=== PATIENT | female | born 1980 | race Caucasian/White ===

== ENCOUNTER 2017-03-20 12:55 | Emergency (ER) | payer OTHER ==
[~2017-03-20] VITALS: Ht 170.2 cm; Wt 64.9 kg
[2017-03-20 13:14] VITALS: BP 146/91
[2017-03-20] MEDS ORDERED: SULF1TAB24 PO (13:44)
--- NOTE | 2017-03-20 13:44 | PHYS DOC ---
Past Medical History Past Medical History: No Pertinent History Past Surgical History: No Surgical History Alcohol Use: None Drug Use: None Adult General Chief Complaint Chief Complaint: INSECT BITE [facility] HPI Patient is a 36 year old female presents to the emergency department stating that she was bit by an insect approximately one week ago. She states that this occurred on her left forearm. She states that she has had increased pain with redness and drainage coming from the site. She's been pinprick on the area with minimal relief. She is scheduled patient denies any fever, chills or any nausea vomiting. Patient states her tetanus immunization is greater than 4-5 years. Review of Systems Review of Systems Constitutional: Denies fever or chills [] Eyes: Denies change in visual acuity, redness, or eye pain [] HENT: Denies nasal congestion or sore throat [] Respiratory: Denies cough or shortness of breath [] Cardiovascular: No additional information not addressed in HPI [] GI: Denies abdominal pain, nausea, vomiting, bloody stools or diarrhea [] : Denies dysuria or hematuria [] Musculoskeletal: Denies back pain or joint pain [] Integument: Denies rash or skin lesions. Patient with redness and tenderness to the left forearm. Neurologic: Denies headache, focal weakness or sensory changes [] Endocrine: Denies polyuria or polydipsia [] Current Medications Current Medications Current Medications Medications (Trade) Dose Ordered Sig/Carole Start Time Stop Time Status Last Admin Dose Admin Diphtheria/ Tetanus/Acell Pertussis (Boostrix) 0.5 ml ONCE ONCE 03/20/17 13:45 03/20/17 13:46 DC Allergies Allergies Allergies Coded Allergies Type Severity Reaction Last Updated Verified No Known Drug Allergies 06/13/14 No Physical Exam Physical Exam Constitutional: Well developed, well nourished, no acute distress, non-toxic appearance. [] HENT: Normocephalic, atraumatic, bilateral external ears normal, oropharynx moist, no oral exudates, nose normal. [] Eyes: PERRLA, EOMI, conjunctiva normal, no discharge. [] Neck: Normal range of motion, no tenderness, supple, no stridor. [] Cardiovascular:Heart rate regular rhythm, no murmur [] Lungs & Thorax: Bilateral breath sounds clear to auscultation [] Skin: Warm, dry, no erythema, no rash. Patient with redness warmth tenderness to the left forearm. Peripheral pulses are 2+ cap refill brisk less than 2 seconds no drainage or discharge noted from the site. Extremities: No tenderness, no cyanosis, no clubbing, ROM intact, no edema. [] Neurologic: Alert and oriented X 3, normal motor function, normal sensory function, no focal deficits noted. [] Psychologic: Affect normal, judgement normal, mood normal. [] Current Patient Data Vital Signs Vital Signs Date Time Temp Pulse Resp B/P (MAP) Pulse Ox O2 Delivery O2 Flow Rate FiO2 03/20/17 13:14 98.1 110 16 100 Room Air 98.1 EKG EKG [] Radiology/Procedures Radiology/Procedures [] Course & Med Decision Making Course & Med Decision Making Pertinent Labs and Imaging studies reviewed. (See chart for details) Patient refuses to have her tetanus immunization updated here in the emergency department. Patient will be placed on Bactrim 2 tablets twice a day for the next 10 days. Recommended Tylenol or ibuprofen for pain and discomfort elevation as much as possible with warm moist packs. Patient was recommended to follow-up with primary care physician in the next 3-5 days. Signs symptoms to return back to emergency department been provided. All questions and concerns been answered at patient's bedside. Patient agrees with discharge instructions treatment regimens and follow-up recommendations. Patient was provided with a prescription for Percogesic in which patient states that she will not take the medication as it has Benadryl in it. Patient has chosen to leave with no further pain medication. [] Dragon Disclaimer Dragon Disclaimer This electronic medical record was generated, in whole or in part, using a voice recognition dictation system. Departure Departure Impression: Primary Impression: Cellulitis of left forearm Disposition: HOME, SELF-CARE Condition: STABLE Referrals: JERRY STOCKTON MD (PCP) Patient Instructions: Cellulitis, [id number] Additional Instructions: Activity as tolerated. Medications prescribed. Tylenol or ibuprofen for pain and discomfort. Warm packs to the area 4-5 times a day. Follow-up with primary care physician in the next 3-5 days. Return back to emergency prior signs symptoms of become worse. Scripts Acetaminophen/Diphenhydramine (ACETA-GESIC 325-12.5 MG TABLET) 1 Each Tablet 1 EACH PO Q8HRS Y for PAIN, #15 TAB Prov: MICHELE LUCIANO APRN 03/20/17 Sulfamethoxazole/Trimethoprim (BACTRIM DS TABLET) 1 Each Tablet 2 TAB PO BID, #40 TAB Prov: MICHELE LUCIANO APRN 03/20/17 MICHELE LUCIANO APRN Mar 20, 2017 13:44
[2017-03-20] MEDS ORDERED: DIPHTH,PERTUSS(ACELL),TET TOX 0.5 ML DISP.SYRIN. VAX IM ONE (13:45)
[2017-03-20] MEDS ORDERED: [UNRECOGNIZED DRUG - CODE] PO (13:53)
== END 2017-03-20 13:50 | disposition home or self-care (01) ==
LOC: ER 12:55
DX: L03.114 Cellulitis of left upper limb (principal); W57.XXXA Bitten or stung by nonvenomous insect and other nonvenomous arthropods, initial encounter; Y93.89 Activity, other specified; Y99.8 Other external cause status; Y92.89 Other specified places as the place of occurrence of the external cause
CPT/HCPCS: 99283